=== PATIENT | male | born 1940 | race Caucasian/White ===

== ENCOUNTER 2019-02-01 15:14 | Inpatient (IN) | payer OTHER ==
[2019-02-01] MEDS: SODIUM CHLORIDE 0.9% 1L BAG IV* (15:46)
[2019-02-01 16:06] LABS: ADD MAN DIFF? NO
[2019-02-01 16:08] LABS: BASOPHIL # 0.1 10^3/ul (0.0-0.1); BASOPHILS % 0.3 % (0.0-2.0); EOSINOPHILS # 0.3 10^3/ul (0.0-0.5); EOSINOPHILS % 1.7 % (0.0-7.0); HEMATOCRIT 24.3 % (42.0-52.0); HEMOGLOBIN 7.6 g/dl (14.0-18.0); LYMPHOCYTES # 1.1 10^3/ul (0.8-2.9); LYMPHOCYTES % 6.7 % (15.0-51.0); MEAN CORPUSCULAR HEMOGLOBIN 28.5 pg (29.0-33.0); MEAN CORPUSCULAR HGB CONC 31.3 g/dl (32.0-37.0); MEAN PLATELET VOLUME 10.1 fl (7.4-10.4); MONOCYTE # 1.1 10^3/ul (0.3-0.9); MONOCYTES % 6.6 % (0.0-11.0); NEUTROPHIL # 13.6 10^3/ul (1.6-7.5); NEUTROPHILS % 84.1 % (39.0-77.0); PLATELET COUNT 396 10^3/UL (140-415); RED BLOOD COUNT 2.67 10^6/ul (4.70-6.10); RED CELL DISTRIBUTION WIDTH 14.5 % (11.5-14.5)
[2019-02-01 16:08] LABS: WHITE BLOOD COUNT 16.2 10^3/ul (4.8-10.8)
[2019-02-01 16:26] LABS: INR 1.08; PROTIME 14.1 Sec (11.9-14.9); PT RATIO 1.1
[2019-02-01 16:27] LABS: PARTIAL THROMBOPLASTIN TIME 27.6 Sec (23.0-35.0)
[2019-02-01 16:30] LABS: ALANINE AMINOTRANSFERASE 25 IU/L (13-69); ALBUMIN 2.6 g/dl (3.3-4.9); ALBUMIN/GLOBULIN RATIO 0.89; ALKALINE PHOSPHATASE 63 IU/L (42-121); ANION GAP 10 (5-13); ASPARTATE AMINO TRANSFERASE 19 IU/L (15-46); BILIRUBIN,INDIRECT 0.3 mg/dl (0-1.1); BILIRUBIN,TOTAL 0.3 mg/dl (0.2-1.3); BLOOD UREA NITROGEN 54 mg/dl (7-20); CALCIUM 8.8 mg/dl (8.4-10.2); CARBON DIOXIDE 22 mmol/L (21-31); CHLORIDE 110 mmol/L (97-110); CREATININE 1.26 mg/dl (0.61-1.24); GLUCOSE 142 mg/dl (70-220); POTASSIUM 4.3 mmol/L (3.5-5.1); SODIUM 142 mmol/L (135-144); TOTAL PROTEIN 5.5 g/dl (6.1-8.1)
[2019-02-01 16:41] LABS: TROPONIN-I 0.047 ng/ml (0.000-0.120)
[2019-02-01] MEDS: CEFEPIME 2GM/50 ML (PMX) 50 ML IVPB (17:10)
[2019-02-01 17:14] LABS: ADD UMIC YES; UR ASCORBIC ACID 40 mg/dL (NEGATIVE); UR BACTERIA MANY /HPF (NONE SEEN); UR BILIRUBIN (Dip) NEGATIVE (NEGATIVE); UR BLOOD (Dip) NEGATIVE (NEGATIVE); UR CLARITY SLIGHTLY CLOUDY (CLEAR); UR COLOR YELLOW (YELLOW); UR GLUCOSE (Dip) NEGATIVE (NEGATIVE); UR KETONES (Dip) NEGATIVE (NEGATIVE); UR LEUKOCYTE ESTERASE (Dip) TRACE Leu/ul (NEGATIVE); UR NITRITE (Dip) NEGATIVE (NEGATIVE); UR RBC 1 /HPF (0-5); UR SPECIFIC GRAVITY (Dip) 1.021 (1.003-1.030); UR TOTAL PROTEIN (Dip) NEGATIVE (NEGATIVE); UR UROBILINOGEN (Dip) 1+ mg/dL (NEGATIVE); UR WBC 6 /HPF (0-5)
[2019-02-01] MEDS: VANCOMYCIN 1 GM (PMX) 250 ML IVPB (18:01)
[2019-02-01] MEDS ORDERED: VANCOMYCIN 1 GM (PMX) 250 ML IVPB (18:30)
[2019-02-01] MEDS: PANTOPRAZOLE IV 80 MG in SOD CHLORIDE 0.9% 100 ML IV ×2 (18:55→22:54)
[2019-02-01] MEDS: PANTOPRAZOLE IV 80 MG in SOD CHLORIDE 0.9% 100 ML IVPB ×2 (18:55→23:36)
[2019-02-01] MEDS ORDERED: ACETAMINOPHEN 325 MG TAB PO ×2 (19:00→22:30)
[2019-02-01] MEDS ORDERED: ONDANSETRON 4 MG INJ IV (19:00)
[2019-02-01 19:44] LABS: LACTIC ACID 1.3 mmol/L (0.5-2.0)
[2019-02-01] MEDS: PIPER-TAZO 3.375 GM IV (PMX) 100 ML IVPB (20:41)
[2019-02-01 23:18] LABS: LACTIC ACID 1.5 mmol/L (0.5-2.0)
[2019-02-01] MEDS: SOD CHLORIDE 0.9% 1,000 ML IV (23:24)
[2019-02-02] MEDS ORDERED: ALBUTEROL/IPRATROPIUM (NEB) 3 ML AMP HHN
[2019-02-02 06:08] LABS: ADD MAN DIFF? NO
[2019-02-02 06:15] LABS: ABNORMAL IP MESSAGE 1; BASOPHILS % 0.2 % (0.0-2.0); EOSINOPHILS # 0.5 10^3/ul (0.0-0.5); EOSINOPHILS % 3.8 % (0.0-7.0); HEMATOCRIT 22.9 % (42.0-52.0); LYMPHOCYTES # 1.4 10^3/ul (0.8-2.9); LYMPHOCYTES % 11.1 % (15.0-51.0); MEAN CORPUSCULAR HEMOGLOBIN 27.2 pg (29.0-33.0); MEAN CORPUSCULAR HGB CONC 29.3 g/dl (32.0-37.0); MEAN CORPUSCULAR VOLUME 93.1 fl (82.0-101.0); MEAN PLATELET VOLUME 10.7 fl (7.4-10.4); MONOCYTE # 0.8 10^3/ul (0.3-0.9); MONOCYTES % 6.4 % (0.0-11.0); NEUTROPHIL # 10.1 10^3/ul (1.6-7.5); PLATELET COUNT 336 10^3/UL (140-415); POSITIVE DIFF @See below; RED BLOOD COUNT 2.46 10^6/ul (4.70-6.10); RED CELL DISTRIBUTION WIDTH 14.6 % (11.5-14.5)
[2019-02-02 06:41] LABS: HEMOGLOBIN 6.7 g/dl (14.0-18.0)
[2019-02-02] MEDS: ACETAMINOPHEN 325 MG TAB PO (07:00)
[2019-02-02] MEDS: SOD CHLORIDE 0.9% 1,000 ML IV ×4 (07:00→23:02)
[2019-02-02 07:04] LABS: TOTAL IRON BINDING CAPACITY 264 ug/dl (241-421)
[2019-02-02 07:16] LABS: ANION GAP 5 (5-13); BLOOD UREA NITROGEN 37 mg/dl (7-20); CALCIUM 8.7 mg/dl (8.4-10.2); CARBON DIOXIDE 18 mmol/L (21-31); CHLORIDE 117 mmol/L (97-110); CREATININE 1.11 mg/dl (0.61-1.24); GLUCOSE 83 mg/dl (70-220); POTASSIUM 4.4 mmol/L (3.5-5.1); SODIUM 140 mmol/L (135-144)
[2019-02-02 07:19] LABS: IRON < 10 ug/dl (35-150)
[2019-02-02 08:04] LABS: FOLATE > 20.0 ng/ml (2.8-20.0)
[2019-02-02] MEDS: SENNA/DOCUSATE NA (8.6MG/50MG) TAB PO ×2 (08:58→20:41)
[2019-02-02] MEDS: TRIAMCINOLONE ACET 0.025% 15 GM OINT TOP ×2 (08:58→20:42)
[2019-02-02] MEDS: MULTIVITAMINS THERAPEUTIC TAB PO (09:00)
[2019-02-02] MEDS: METOPROLOL 100 MG TAB PO (09:00)
[2019-02-02] MEDS: PANTOPRAZOLE IV 80 MG in SOD CHLORIDE 0.9% 100 ML IV ×3 (09:00→18:36)
[2019-02-02] MEDS: ALBUTEROL/IPRATROPIUM (NEB) 3 ML AMP HHN ×3 (09:24→19:52)
[2019-02-02 10:33] LABS: BAND NEUTROPHILS #M 1.5 10^3/ul (0.0-0.6); BAND NEUTROPHILS % (M) 12 % (0-4); BURR CELLS 1+ (0-0); EOSINOPHILS % (M) 4 % (0-7); LYMPHOCYTES #M 0.9 10^3/ul (0.8-2.9); LYMPHOCYTES % (M) 7 % (15-51); MONOCYTE #M 0.9 10^3/ul (0.3-0.9); MONOCYTES % (M) 7 % (0-11); MYELOCYTES #M 0.2 10^3/ul (0.0-0.0); MYELOCYTES % (M) 2 % (0-0); OVALOCYTES 1+ (0-0); PLATELET ESTIMATE NORMAL; POIKILOCYTOSIS 1+ (0-0); POLYCHROMASIA 3+ (0-0); SEGMENTED NEUTROPHILS (M) % 68 % (39-77); SMUDGE%M 5 % (0-0)
[2019-02-02] MEDS: FUROSEMIDE 40 MG INJ IV (12:52)
[2019-02-02] MEDS: MELATONIN 5 MG TABLET PO (20:41)
[2019-02-02] MEDS: ATORVASTATIN 40 MG TAB PO (20:42)
[2019-02-03] MEDS: ALBUTEROL/IPRATROPIUM (NEB) 3 ML AMP HHN ×4 (01:33→20:17)
[2019-02-03] MEDS: PANTOPRAZOLE IV 80 MG in SOD CHLORIDE 0.9% 100 ML IV ×2 (05:14→15:18)
[2019-02-03] MEDS: SOD CHLORIDE 0.9% 1,000 ML IV ×2 (06:27→15:18)
[2019-02-03] MEDS: SENNA/DOCUSATE NA (8.6MG/50MG) TAB PO ×2 (08:26→21:09)
[2019-02-03] MEDS: MULTIVITAMINS THERAPEUTIC TAB PO (08:26)
[2019-02-03] MEDS: TRIAMCINOLONE ACET 0.025% 15 GM OINT TOP ×2 (08:27→21:09)
[2019-02-03] MEDS: METOPROLOL 100 MG TAB PO (08:27)
[2019-02-03 13:34] LABS: ADD MAN DIFF? NO
[2019-02-03 13:51] LABS: ABNORMAL IP MESSAGE 1; BASOPHILS % 0.3 % (0.0-2.0); EOSINOPHILS # 0.4 10^3/ul (0.0-0.5); EOSINOPHILS % 5.3 % (0.0-7.0); HEMATOCRIT 20.1 % (42.0-52.0); LYMPHOCYTES # 1.2 10^3/ul (0.8-2.9); LYMPHOCYTES % 14.5 % (15.0-51.0); MEAN CORPUSCULAR HEMOGLOBIN 27.7 pg (29.0-33.0); MEAN CORPUSCULAR HGB CONC 29.4 g/dl (32.0-37.0); MEAN CORPUSCULAR VOLUME 94.4 fl (82.0-101.0); MEAN PLATELET VOLUME 10.6 fl (7.4-10.4); MONOCYTE # 0.6 10^3/ul (0.3-0.9); MONOCYTES % 8.1 % (0.0-11.0); NEUTROPHIL # 5.7 10^3/ul (1.6-7.5); NEUTROPHILS % 71.4 % (39.0-77.0); PLATELET COUNT 324 10^3/UL (140-415); POSITIVE DIFF @See below; RED BLOOD COUNT 2.13 10^6/ul (4.70-6.10)
[2019-02-03 13:51] LABS: WHITE BLOOD COUNT 7.9 10^3/ul (4.8-10.8)
[2019-02-03 13:56] LABS: HEMOGLOBIN 5.9 g/dl (14.0-18.0)
[2019-02-03] MEDS: SOD FERRIC GLUC COMPLX 125 MG in SOD CHLORIDE 0.9% 100 ML IVPB (14:01)
[2019-02-03] MEDS: CYANOCOBALAMIN 1000 MCG INJ IM (14:01)
[2019-02-03] MEDS: ATORVASTATIN 40 MG TAB PO (21:09)
[2019-02-03] MEDS: MELATONIN 5 MG TABLET PO (21:09)
[2019-02-04] MEDS: SOD CHLORIDE 0.9% 1,000 ML IV ×3 (00:04→07:24)
[2019-02-04] MEDS: ALBUTEROL/IPRATROPIUM (NEB) 3 ML AMP HHN ×4 (01:25→20:45)
[2019-02-04] MEDS: PANTOPRAZOLE IV 80 MG in SOD CHLORIDE 0.9% 100 ML IV ×3 (01:54→22:11)
[2019-02-04 05:53] LABS: ADD MAN DIFF? NO
[2019-02-04 06:01] LABS: ABNORMAL IP MESSAGE 1; BASOPHILS % 0.3 % (0.0-2.0); EOSINOPHILS # 0.5 10^3/ul (0.0-0.5); EOSINOPHILS % 5.9 % (0.0-7.0); HEMATOCRIT 19.4 % (42.0-52.0); LYMPHOCYTES # 0.9 10^3/ul (0.8-2.9); LYMPHOCYTES % 10.3 % (15.0-51.0); MEAN CORPUSCULAR HEMOGLOBIN 27.6 pg (29.0-33.0); MEAN CORPUSCULAR HGB CONC 29.9 g/dl (32.0-37.0); MEAN CORPUSCULAR VOLUME 92.4 fl (82.0-101.0); MEAN PLATELET VOLUME 10.2 fl (7.4-10.4); MONOCYTE # 0.6 10^3/ul (0.3-0.9); MONOCYTES % 6.8 % (0.0-11.0); NEUTROPHIL # 6.7 10^3/ul (1.6-7.5); NEUTROPHILS % 76.2 % (39.0-77.0); PLATELET COUNT 318 10^3/UL (140-415); POSITIVE DIFF @See below
[2019-02-04 06:01] LABS: WHITE BLOOD COUNT 8.8 10^3/ul (4.8-10.8)
[2019-02-04 06:22] LABS: HEMOGLOBIN 5.8 g/dl (14.0-18.0)
[2019-02-04 08:49] LABS: OCCULT BLOOD STOOL POSITIVE (NEGATIVE)
[2019-02-04] MEDS: CYANOCOBALAMIN 1000 MCG INJ IM (08:55)
[2019-02-04] MEDS: METOPROLOL 100 MG TAB PO (08:56)
[2019-02-04] MEDS: MULTIVITAMINS THERAPEUTIC TAB PO (08:56)
[2019-02-04] MEDS: SENNA/DOCUSATE NA (8.6MG/50MG) TAB PO ×2 (08:56→21:00)
[2019-02-04] MEDS: TRIAMCINOLONE ACET 0.025% 15 GM OINT TOP ×2 (08:57→21:00)
[2019-02-04] MEDS: SOD FERRIC GLUC COMPLX 125 MG in SOD CHLORIDE 0.9% 100 ML IVPB (12:45)
[2019-02-04] MEDS: ATORVASTATIN 40 MG TAB PO (21:00)
[2019-02-04] MEDS: MELATONIN 5 MG TABLET PO (21:00)
[2019-02-05] MEDS: ALBUTEROL/IPRATROPIUM (NEB) 3 ML AMP HHN ×3 (02:28→13:14)
[2019-02-05 05:31] LABS: ADD MAN DIFF? NO
[2019-02-05] MEDS: FUROSEMIDE 40 MG INJ IV (05:36)
[2019-02-05 05:41] LABS: ABNORMAL IP MESSAGE 1; BASOPHILS % 0.3 % (0.0-2.0); EOSINOPHILS % 10.4 % (0.0-7.0); HEMATOCRIT 19.6 % (42.0-52.0); LYMPHOCYTES # 0.8 10^3/ul (0.8-2.9); MEAN CORPUSCULAR HEMOGLOBIN 28.2 pg (29.0-33.0); MEAN CORPUSCULAR HGB CONC 30.6 g/dl (32.0-37.0); MEAN PLATELET VOLUME 10.2 fl (7.4-10.4); MONOCYTE # 0.8 10^3/ul (0.3-0.9); MONOCYTES % 8.3 % (0.0-11.0); NEUTROPHIL # 6.6 10^3/ul (1.6-7.5); NEUTROPHILS % 71.5 % (39.0-77.0); NUCLEATED RED BLOOD CELLS% 0.2 /100WBC (0.0-0.0); PLATELET COUNT 297 10^3/UL (140-415); POSITIVE DIFF @See below; RED BLOOD COUNT 2.13 10^6/ul (4.70-6.10); RED CELL DISTRIBUTION WIDTH 15.3 % (11.5-14.5)
[2019-02-05 05:41] LABS: WHITE BLOOD COUNT 9.3 10^3/ul (4.8-10.8)
[2019-02-05] MEDS: PANTOPRAZOLE IV 80 MG in SOD CHLORIDE 0.9% 100 ML IV ×2 (07:00→17:00)
[2019-02-05] MEDS: METOPROLOL 100 MG TAB PO (09:00)
[2019-02-05] MEDS: SENNA/DOCUSATE NA (8.6MG/50MG) TAB PO (09:41)
[2019-02-05] MEDS: MULTIVITAMINS THERAPEUTIC TAB PO (09:41)
[2019-02-05] MEDS: TRIAMCINOLONE ACET 0.025% 15 GM OINT TOP (09:42)
[2019-02-05] MEDS: CYANOCOBALAMIN 1000 MCG INJ IM (09:42)
[2019-02-05] MEDS: SOD FERRIC GLUC COMPLX 125 MG in SOD CHLORIDE 0.9% 100 ML IVPB (13:42)
[2019-02-06] MEDS ORDERED: EPOETIN ALFA-EPBX (NON-ESRD 10,000 UNIT/ML VIAL SC (17:00)
== END 2019-02-05 18:50 | DRG 378 ==
LOC: E/R 15:14 → 6WM 21:37
DX: K92.2 Gastrointestinal hemorrhage, unspecified (principal); I69.354 Hemiplegia and hemiparesis following cerebral infarction affecting left non-dominant side; D62 Acute posthemorrhagic anemia; K57.92 Diverticulitis of intestine, part unspecified, without perforation or abscess without bleeding; D51.3 Other dietary vitamin B12 deficiency anemia; E86.0 Dehydration; E78.5 Hyperlipidemia, unspecified; F03.90 Unspecified dementia, unspecified severity, without behavioral disturbance, psychotic disturbance, mood disturbance, and anxiety; I12.9 Hypertensive chronic kidney disease with stage 1 through stage 4 chronic kidney disease, or unspecified chronic kidney disease; N18.3 Chronic kidney disease, stage 3 (moderate); I25.10 Atherosclerotic heart disease of native coronary artery without angina pectoris; K21.9 Gastro-esophageal reflux disease without esophagitis; K92.1 Melena; Z53.1 Procedure and treatment not carried out because of patient's decision for reasons of belief and group pressure; I25.2 Old myocardial infarction; Z95.5 Presence of coronary angioplasty implant and graft; Z79.82 Long term (current) use of aspirin; Z79.02 Long term (current) use of antithrombotics/antiplatelets
CPT/HCPCS: 71045; 74176; 80048; 80053; 81001; 82270; 82607; 82746; 83540; 83605; 84484; 85025; 85610; 85730; 86850; 86900; 86901; 86920; 87040-91; 87045; 87086; 93005; 94640; 96374; 96375; 99285-25

== ENCOUNTER 2019-02-13 22:24 | Inpatient (IN) | payer OTHER ==
[2019-02-14 01:11] LABS: ADD MAN DIFF? NO
[2019-02-14 01:15] LABS: WHITE BLOOD COUNT 7.2 10^3/ul (4.8-10.8)
[2019-02-14 01:15] LABS: BASOPHILS % 0.3 % (0.0-2.0); EOSINOPHILS % 14.3 % (0.0-7.0); HEMATOCRIT 26.3 % (42.0-52.0); HEMOGLOBIN 7.7 g/dl (14.0-18.0); LYMPHOCYTES # 1.3 10^3/ul (0.8-2.9); LYMPHOCYTES % 17.4 % (15.0-51.0); MEAN CORPUSCULAR HEMOGLOBIN 28.3 pg (29.0-33.0); MEAN CORPUSCULAR HGB CONC 29.3 g/dl (32.0-37.0); MEAN CORPUSCULAR VOLUME 96.7 fl (82.0-101.0); MEAN PLATELET VOLUME 10.5 fl (7.4-10.4); MONOCYTE # 0.6 10^3/ul (0.3-0.9); MONOCYTES % 8.9 % (0.0-11.0); NEUTROPHIL # 4.2 10^3/ul (1.6-7.5); NEUTROPHILS % 58.7 % (39.0-77.0); PLATELET COUNT 375 10^3/UL (140-415); RED BLOOD COUNT 2.72 10^6/ul (4.70-6.10); RED CELL DISTRIBUTION WIDTH 20.8 % (11.5-14.5)
[2019-02-14 01:18] LABS: INR 1.04; PROTIME 13.7 Sec (11.9-14.9); PT RATIO 1.1
[2019-02-14 01:19] LABS: PARTIAL THROMBOPLASTIN TIME 28.3 Sec (23.0-35.0)
[2019-02-14 01:21] LABS: ALANINE AMINOTRANSFERASE 32 IU/L (13-69); ALBUMIN 2.7 g/dl (3.3-4.9); ALBUMIN/GLOBULIN RATIO 0.87; ALKALINE PHOSPHATASE 75 IU/L (42-121); ANION GAP 5 (5-13); ASPARTATE AMINO TRANSFERASE 35 IU/L (15-46); BILIRUBIN,INDIRECT 0.2 mg/dl (0-1.1); BILIRUBIN,TOTAL 0.2 mg/dl (0.2-1.3); BLOOD UREA NITROGEN 15 mg/dl (7-20); CALCIUM 9.1 mg/dl (8.4-10.2); CARBON DIOXIDE 22 mmol/L (21-31); CHLORIDE 110 mmol/L (97-110); CREATININE 1.45 mg/dl (0.61-1.24); GLUCOSE 99 mg/dl (70-220); POTASSIUM 4.6 mmol/L (3.5-5.1); SODIUM 137 mmol/L (135-144); TOTAL PROTEIN 5.8 g/dl (6.1-8.1)
[2019-02-14 01:25] LABS: ETHANOL < 10.0 mg/dl (0-0); SALICYLATE < 1.0 mg/dl (5.0-30.0)
[2019-02-14 01:33] LABS: TROPONIN-I 0.193 ng/ml (0.000-0.120)
[2019-02-14 03:20] LABS: LACTIC ACID 1.3 mmol/L (0.5-2.0)
[2019-02-14] MEDS ORDERED: ACETAMINOPHEN 325 MG TAB PO ×2 (04:00→04:30)
[2019-02-14] MEDS ORDERED: ONDANSETRON 4 MG INJ IV ×2 (04:00→04:30)
[2019-02-14] MEDS ORDERED: NACL 0.9% 3 ML SYG IV (04:30)
[2019-02-14] MEDS ORDERED: ALBUTEROL/IPRATROPIUM (NEB) 3 ML AMP HHN (06:00)
[2019-02-14 06:19] LABS: ADD MAN DIFF? NO
[2019-02-14 06:22] LABS: BASOPHILS % 0.3 % (0.0-2.0); EOSINOPHILS # 1.3 10^3/ul (0.0-0.5); EOSINOPHILS % 14.2 % (0.0-7.0); HEMATOCRIT 28.3 % (42.0-52.0); HEMOGLOBIN 8.2 g/dl (14.0-18.0); LYMPHOCYTES # 1.5 10^3/ul (0.8-2.9); LYMPHOCYTES % 16.4 % (15.0-51.0); MEAN CORPUSCULAR HEMOGLOBIN 28.3 pg (29.0-33.0); MEAN CORPUSCULAR VOLUME 97.6 fl (82.0-101.0); MEAN PLATELET VOLUME 10.1 fl (7.4-10.4); MONOCYTE # 0.7 10^3/ul (0.3-0.9); MONOCYTES % 7.2 % (0.0-11.0); NEUTROPHIL # 5.6 10^3/ul (1.6-7.5); NEUTROPHILS % 61.5 % (39.0-77.0); PLATELET COUNT 428 10^3/UL (140-415); RED CELL DISTRIBUTION WIDTH 20.2 % (11.5-14.5)
[2019-02-14 06:22] LABS: WHITE BLOOD COUNT 9.1 10^3/ul (4.8-10.8)
[2019-02-14 06:40] LABS: CREATINE KINASE 31 IU/L (23-200)
[2019-02-14 06:41] LABS: HEMOGLOBIN A1C 5.1 % (0-5.9)
[2019-02-14 06:45] LABS: BLOOD UREA NITROGEN 13 mg/dl (7-20); CALCIUM 9.3 mg/dl (8.4-10.2); CARBON DIOXIDE 23 mmol/L (21-31); CHOL/HDL RATIO 4.3 RATIO; CHOLESTEROL 82 mg/dl (100-200); CREATININE 1.35 mg/dl (0.61-1.24); GLUCOSE 76 mg/dl (70-220); HDL CHOLESTEROL 19 mg/dl (31-75); LDL CHOLESTEROL,CALCULATED 41 mg/dl; TRIGLYCERIDES 111 mg/dl (0-149)
[2019-02-14 06:55] LABS: CK INDEX 6.8; CK-MB 2.12 ng/ml (0.0-2.4)
[2019-02-14 07:02] LABS: TROPONIN-I 0.188 ng/ml (0.000-0.120)
[2019-02-14 07:04] LABS: ANION GAP 6 (5-13); CHLORIDE 108 mmol/L (97-110); POTASSIUM 4.7 mmol/L (3.5-5.1); SODIUM 137 mmol/L (135-144)
[2019-02-14] MEDS: PANTOPRAZOLE (EC) 40 MG TAB PO (07:46)
[2019-02-14] MEDS: ALBUTEROL/IPRATROPIUM (NEB) 3 ML AMP HHN ×3 (08:34→19:17)
[2019-02-14] MEDS ORDERED: ENOXAPARIN 30 MG/0.3 ML SYG SC (09:00)
[2019-02-14] MEDS: FERROUS SULFATE (EC) 325 MG TAB PO ×2 (11:07→21:11)
[2019-02-14] MEDS: FOLIC ACID 0.4 MG TAB PO ×2 (11:07→21:12)
[2019-02-14] MEDS: CHOLECALCIFEROL 1,000 UNIT TAB PO ×2 (11:07→21:11)
[2019-02-14] MEDS: MULTIVITAMINS THERAPEUTIC TAB PO (11:08)
[2019-02-14 11:32] LABS: CREATINE KINASE 27 IU/L (23-200)
[2019-02-14 11:33] LABS: IRON 19 ug/dl (35-150)
[2019-02-14] MEDS: SOD FERRIC GLUC COMPLX 125 MG in SOD CHLORIDE 0.9% 100 ML IVPB (11:33)
[2019-02-14 11:42] LABS: % IRON SATURATION 7 % SAT (22-52); TOTAL IRON BINDING CAPACITY 264 ug/dl (241-421)
[2019-02-14 11:45] LABS: CK INDEX 6.5; CK-MB 1.76 ng/ml (0.0-2.4)
[2019-02-14 11:47] LABS: TROPONIN-I 0.128 ng/ml (0.000-0.120)
[2019-02-14] MEDS: PANTOPRAZOLE 40 MG INJ IV ×2 (12:54→21:12)
[2019-02-14] MEDS: CYANOCOBALAMIN 500 MCG TAB PO (14:02)
[2019-02-14 14:11] LABS: FOLATE > 20.0 ng/ml (2.8-20.0)
[2019-02-14] MEDS: ATORVASTATIN 40 MG TAB PO (21:11)
[2019-02-14] MEDS: DOCUSATE SODIUM 100 MG CAP PO (21:11)
[2019-02-14] MEDS: MELATONIN 5 MG TABLET PO (21:11)
[2019-02-14] MEDS: hydrOXYzine HCL 25 MG TAB PO (23:30)
[2019-02-15] MEDS: ALBUTEROL/IPRATROPIUM (NEB) 3 ML AMP HHN ×3 (01:17→13:15)
[2019-02-15] MEDS: FERROUS SULFATE (EC) 325 MG TAB PO (08:31)
[2019-02-15] MEDS: PANTOPRAZOLE 40 MG INJ IV (08:31)
[2019-02-15] MEDS: CHOLECALCIFEROL 1,000 UNIT TAB PO (08:31)
[2019-02-15] MEDS: FOLIC ACID 0.4 MG TAB PO (08:31)
[2019-02-15] MEDS: MULTIVITAMINS THERAPEUTIC TAB PO (08:31)
[2019-02-15] MEDS: CYANOCOBALAMIN 500 MCG TAB PO (08:32)
[2019-02-15] MEDS ORDERED: EPOETIN ALFA-EPBX (NON-ESRD 10,000 UNIT/ML VIAL SC (17:00)
== END 2019-02-15 15:27 | disposition home or self-care (01) | DRG 948 ==
LOC: E/R 22:24 → 6WM 02-14 03:48
DX: R41.82 Altered mental status, unspecified (principal); K92.2 Gastrointestinal hemorrhage, unspecified; N17.9 Acute kidney failure, unspecified; I13.0 Hypertensive heart and chronic kidney disease with heart failure and stage 1 through stage 4 chronic kidney disease, or unspecified chronic kidney disease; I50.42 Chronic combined systolic (congestive) and diastolic (congestive) heart failure; I25.5 Ischemic cardiomyopathy; D64.9 Anemia, unspecified; I25.10 Atherosclerotic heart disease of native coronary artery without angina pectoris; D50.9 Iron deficiency anemia, unspecified; N18.9 Chronic kidney disease, unspecified; E78.5 Hyperlipidemia, unspecified; K21.9 Gastro-esophageal reflux disease without esophagitis; I25.2 Old myocardial infarction; Z98.61 Coronary angioplasty status
CPT/HCPCS: 36415; 70450; 70551; 71045; 80048; 80053; 80061; 80307; 82550; 82553; 82607; 82728; 82746; 83036; 83540; 83605; 84443; 84484; 85025; 85610; 85730; 87081; 92526; 92610; 93005; 93306; 93880; 93970; 94640; 94664; 97162; 99285-25